=== PATIENT | female | born 1935 | race Caucasian/White ===

== ENCOUNTER 2022-07-31 13:28 | Outpatient (CLI) | payer MEDICARE | END 2022-07-31 13:29 | disposition home or self-care (01) | LOC: BICRAD 13:28 | PROVIDERS: ATTEND Internal Medicine | DX: M25.542 Pain in joints of left hand (principal); M25.541 Pain in joints of right hand | CPT/HCPCS: 80053; 82728; 82746; 83520; 83540; 83550; 84439; 84443; 85025; 85652; 86140; 86200 ==

== ENCOUNTER 2024-02-09 11:02 | Outpatient (CLI) | payer MEDICARE | END 2024-02-09 11:03 | disposition home or self-care (01) | LOC: ULT 11:02 | PROVIDERS: ATTEND Internal Medicine | DX: R09.89 Other specified symptoms and signs involving the circulatory and respiratory systems (principal) | CPT/HCPCS: 93922 ==